=== PATIENT | female | born 1945 | race Caucasian/White ===

== ENCOUNTER 2020-09-17 06:38 | Day surgery (SDC) | payer OTHER ==
[~2020-09-17] VITALS: Ht 167.6 cm; Wt 113.4 kg
[~2020-09-17 06:38] MED LIST: FLONASE 0.05%50 MCG NARES; FUROSEMIDE 40 M40 M1 PO; LEVEMIR FL100 UNIT/2 SUBQ; METOPROLOL TART25 MG PO; NOVOLIN R100 UNIT/2 SUBQ; ONDANSETRON HCL4 M2 PO; PAIN RELIEF325 MG PO; TRAMADOL 50 MG50 MG PO; WARFARIN SODIUM1 MG PO; ZYRTEC10 M5 PO
[2020-09-17 08:02] VITALS: BP 146/70
--- NOTE | 2020-09-21 06:15 | O ---
[facility] [place] [address] OPERATIVE REPORT Name: MIKAYLA BURGER Room #: DEP [facility]#: [id number] Admission: 09/17/20 Attend Phys: Dmitry Templeton MD Discharge: 09/17/20 Date of : 47 Report #: [id number] THIS REPORT FOR: cc: Physician not on staff Physician not on staff Dmitry Templeton MD ~ DOC #: [id number] cc: Sabina Barnett MD DATE OF SERVICE: 09/17/2020 PREOPERATIVE DIAGNOSIS: Left lower lid ectropion with lagophthalmos, lid retraction and keratopathy. POSTOPERATIVE DIAGNOSIS: Left lower lid ectropion with lagophthalmos, lid retraction and keratopathy. PROCEDURE: Left lower lid ectropion repair with transconjunctival left lower lid and cheek lift. SURGEON: Dmitry Templeton MD FERRIS WHEEL OPERATOR: None. ANESTHESIOLOGIST: MIRI. COMPLICATIONS: None. 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 She presents today for a left lower lid and cheek procedure in order to attempt to preserve her ocular surface milieu and reduce her risk for loss of her eye. Informed consent was obtained to include but not limited to the potential risk for loss of vision, bleeding, infection, failure to improve the problem, the potential need for further surgery. The patient's INR today prior to surgery was 1.8. Typically, we would like to see it at 1.5 or less, but her corneal findings are so severe that the risk/benefit ratio favors intervention rather than rescheduling her surgery. DESCRIPTION OF PROCEDURE: The patient was taken to the operating room where 2% Xylocaine with epinephrine mixed equal parts 0.75% Marcaine with Wydase was administered transcutaneously and transconjunctivally to the left lower lid, the left lateral canthus, the left infratemporal fossa and the left cheek. Because [address] [address] OPERATIVE REPORT Name: MIKAYLA BURGER Room #: DEP [facility] M.R.#: [id number] Admission: 09/17/20 Attend Phys: Dmitry Templeton MD Discharge: 09/17/20 Date of : 47 Report #: [id number] of the radiation changes in the area, the tissue was quite tense, making the injection of the anesthetic itself alone challenging. She was then prepped and draped in a very delicate fashion to attempt to not disrupt the eschar over her radiation carroll in her cheek. She was then positioned for surgery. A moistened sponge was placed on the right eye. The left lateral canthus was then clamped with a Rubio clamp following which a sharp canthotomy and cantholysis was performed. She had a significant amount of chemosis, which was likely a secondary effect from the orbital changes from her external beam radiation. A tarsal strip was then prepared laterally removing the lash bearing portion of the redundant lid margin and the redundant tarsal plate. Attention was then turned away from the ectropion repair and towards the transconjunctival lower lid and cheek lift. An incision was then made below the inferior border of the tarsal plate across the width of the lid. The dissection was then carried down into the premalar tissues. The tissues were extremely dense from the radiation, but they could be sharply. The lower lid and cheek tissues were elevated and resuspended with interrupted Prolene sutures. Attention was then turned to completion of the ectropion repair. The tarsal strip was secured to the internal portion of the lateral orbital tubercle, securing dense bites of the periosteum to suspend the lower lid and cheek well, anticipating the ongoing inflammatory process in her lower lid and cheek to want to draw the lid back down again. The skin was then closed with interrupted 6-0 plain gut sutures. The wounds were then cleaned and dressed with erythromycin ophthalmic ointment. The patient was subsequently transported to the recovery area having tolerated the procedure well with no anesthetic or operative complications being noted to either procedure. It is also worthy to note that she did note experience an undue amount of bleeding during surgery. MD DELPHINE Mai/NIECY <ELECTRONICALLY SIGNED> By: Dmitry Templeton MD 09/21/20 0615 [id number] Dmitry Templeton MD /alberta
== END 2020-09-17 09:03 | disposition home or self-care (01) ==
LOC: OR 06:38 → TBA 06:40 → OR 09:03
PROVIDERS: ATTEND Ophthalmology
DX: H02.105 Unspecified ectropion of left lower eyelid (principal); H02.205 Unspecified lagophthalmos left lower eyelid; H02.535 Eyelid retraction left lower eyelid; H18.9 Unspecified disorder of cornea; I10 Essential (primary) hypertension; I48.91 Unspecified atrial fibrillation; E11.9 Type 2 diabetes mellitus without complications; G47.30 Sleep apnea, unspecified; Z98.890 Other specified postprocedural states; Z79.899 Other long term (current) drug therapy; Z79.4 Long term (current) use of insulin; Z79.01 Long term (current) use of anticoagulants; Z90.49 Acquired absence of other specified parts of digestive tract; Z20.822 Contact with and (suspected) exposure to COVID-19; Z85.821 Personal history of Merkel cell carcinoma; Z87.442 Personal history of urinary calculi; Z86.73 Personal history of transient ischemic attack (TIA), and cerebral infarction without residual deficits; Z95.0 Presence of cardiac pacemaker; Z98.41 Cataract extraction status, right eye; Z98.42 Cataract extraction status, left eye
CPT/HCPCS: 50010; 50101; 50386; 50398; 51636; 56527; 56531; 62110; 62850; 70005